=== PATIENT | female | born 1970 | race Caucasian/White ===

== ENCOUNTER → 2024-09-30 14:38 | Outpatient (REF) | payer BC, SELFPAY | LOC: HWRAD 14:38 | PROVIDERS: ATTENDING PHYSICIAN Nurse Practitioner Adult Health | DX: M25.552 Pain in left hip (principal) | CPT/HCPCS: 73523 ==

== ENCOUNTER → 2024-10-06 06:27 | Outpatient (REF) | payer BC, SELFPAY | LOC: HWWDC 06:27 | PROVIDERS: ATTENDING PHYSICIAN Nurse Practitioner Adult Health | DX: Z12.31 Encounter for screening mammogram for malignant neoplasm of breast (principal) | CPT/HCPCS: 77063; 77067 ==

== ENCOUNTER → 2024-10-19 07:12 | Outpatient (REF) | payer BC, SELFPAY | LOC: HWRAD 07:12 | PROVIDERS: ATTENDING PHYSICIAN Nurse Practitioner; FAMILY PHYSICIAN Nurse Practitioner Adult Health | DX: R22.1 Localized swelling, mass and lump, neck (principal) | CPT/HCPCS: 76536 ==

== ENCOUNTER 2025-05-17 06:27 | Day surgery (SDC) | payer BC, SELFPAY | END 2025-05-17 12:45 | disposition home or self-care (01) | LOC: GI 06:27 | PROVIDERS: ATTENDING PHYSICIAN Internal Medicine Gastroenterology | DX: Z12.11 Encounter for screening for malignant neoplasm of colon (principal); K22.2 Esophageal obstruction; K44.9 Diaphragmatic hernia without obstruction or gangrene; Q39.9 Congenital malformation of esophagus, unspecified; K22.89 Other specified disease of esophagus; D12.2 Benign neoplasm of ascending colon; D12.4 Benign neoplasm of descending colon; K22.70 Barrett's esophagus without dysplasia | CPT/HCPCS: 45385; 45380; 43239; 88305 ==